=== PATIENT | male | born 1945 | race Caucasian/White ===

== ENCOUNTER 2022-07-25 15:08 | Inpatient (IN) ==
[2022-07-25] MEDS ORDERED: SODIUM CHLORIDE 0.9% 1,000 ML IV STA (16:03)
[2022-07-25 16:41] LABS: Basophils % 0.4 % (0.0-0.8); Eosinophils # 0.1 10*3/uL (0.0-0.87); Eosinophils % 1.5 % (0.00-10.9); Hematocrit 34.3 VOL% (42.0-52.0); Hemoglobin 10.7 GM/DL (14.0-18.0); Immature Granulocytes % 0.6 %; Immature Granulocytes Absolute 0.05 #; Lymphocytes # 0.9 10*3/uL (1.4-4.0); Lymphocytes % 11.5 % (21.2-54.2); Mean Corpuscular HGB Conc 31.2 GM/DL (32-36); Mean Corpuscular Volume 88.2 FL (87-102); Monocytes # 0.6 10*3/uL (0.11-0.8); Monocytes % 7.5 % (1.7-12.7); Neutrophils % 78.5 % (38.7-73.9); Platelet Count 562 T/CUMM (130-400); Red Blood Count 3.89 MC/CUMM (3.8-5.5); Red Cell Distribution Width 15.5 % (9.3-17.3); White Blood Count 8.2 T/CUMM (4-12)
[2022-07-25 16:57] LABS: Albumin 2.6 G/DL (3.4-5.0); Bilirubin,Total 0.6 MG/DL (0.20-1.00); Osmolality,Calculated 301.3 MOS/KG (273-304); Potassium 3.7 MMOL/L (3.5-5.1); Total Protein 6.5 G/DL (6.4-8.2)
[2022-07-25] MEDS ORDERED: ONDANSETRON 4 MG/2 ML VIAL IV PRN (18:44)
[2022-07-25] MEDS ORDERED: hydrALAZINE 20 MG/1 ML VIAL IV PRN (18:44)
[2022-07-25] MEDS ORDERED: NICOTINE 21 MG/24 HR PATCH TRANSDERM PRN (18:44)
[2022-07-26] MEDS ORDERED: INFLUENZA VIRUS VACCINE 0.5 ML SYRINGE IM ONE (00:40)
[2022-07-26] MEDS: DEXT 5% NACL 0.45% KCL 40 MEQ 40 MEQ/1,000 ML BAG IV SCH (01:44)
[2022-07-26 05:42] LABS: Basophils % 0.4 % (0.0-0.8); Eosinophils # 0.2 10*3/uL (0.0-0.87); Hematocrit 34.8 VOL% (42.0-52.0); Hemoglobin 10.9 GM/DL (14.0-18.0); Immature Granulocytes % 0.6 %; Immature Granulocytes Absolute 0.05 #; Lymphocytes # 0.9 10*3/uL (1.4-4.0); Lymphocytes % 11.7 % (21.2-54.2); Mean Corpuscular HGB Conc 31.3 GM/DL (32-36); Mean Corpuscular Volume 90.2 FL (87-102); Mean Platelet Volume 9.3 FL (9.6-12.0); Monocytes # 0.5 10*3/uL (0.11-0.8); Monocytes % 5.7 % (1.7-12.7); Neutrophils % 79.6 % (38.7-73.9); Platelet Count 477 T/CUMM (130-400); Red Blood Count 3.86 MC/CUMM (3.8-5.5); Red Cell Distribution Width 15.7 % (9.3-17.3); White Blood Count 7.9 T/CUMM (4-12)
[2022-07-26] MEDS ORDERED: BISACODYL 10 MG SUPP RECTAL PRN (13:07)
[2022-07-26] MEDS ORDERED: BISACODYL 10 MG SUPP RECTAL ONE (13:30)
[2022-07-26] MEDS: ZINC OXIDE PASTE 113 GM TUBE TOP SCH (21:19)
[2022-07-27] MEDS: DEXT 5% NACL 0.45% KCL 40 MEQ 40 MEQ/1,000 ML BAG IV SCH ×2 (01:45→12:57)
[2022-07-27 06:11] LABS: Basophils % 0.3 % (0.0-0.8); Eosinophils # 0.2 10*3/uL (0.0-0.87); Eosinophils % 2.8 % (0.00-10.9); Hematocrit 33.7 VOL% (42.0-52.0); Hemoglobin 10.2 GM/DL (14.0-18.0); Immature Granulocytes % 0.7 %; Immature Granulocytes Absolute 0.05 #; Lymphocytes % 14.1 % (21.2-54.2); Mean Corpuscular HGB Conc 30.3 GM/DL (32-36); Mean Corpuscular Volume 91.8 FL (87-102); Mean Platelet Volume 8.7 FL (9.6-12.0); Monocytes # 0.5 10*3/uL (0.11-0.8); Monocytes % 6.8 % (1.7-12.7); Neutrophils % 75.3 % (38.7-73.9); Platelet Count 466 T/CUMM (130-400); Red Blood Count 3.67 MC/CUMM (3.8-5.5); Red Cell Distribution Width 16.2 % (9.3-17.3)
[2022-07-27 06:29] LABS: Albumin 2.2 G/DL (3.4-5.0); Bilirubin,Total 0.4 MG/DL (0.20-1.00); Calcium 8.4 MG/DL (8.5-10.1); Osmolality,Calculated 303.7 MOS/KG (273-304); Potassium 3.9 MMOL/L (3.5-5.1); Total Protein 5.7 G/DL (6.4-8.2)
[2022-07-27] MEDS: ZINC OXIDE PASTE 113 GM TUBE TOP SCH ×2 (08:41→20:22)
[2022-07-27] MEDS ORDERED: propofoL 200 MG/20 ML VIAL IV ONE (10:50)
[2022-07-27] MEDS ORDERED: ROCURONIUM 50 MG/5 ML VIAL IV ONE (10:50)
[2022-07-27] MEDS ORDERED: ETOMIDATE 40 MG/20 ML VIAL IV ONE (10:50)
[2022-07-27] MEDS ORDERED: fentaNYL 100 MCG/2 ML VIAL ONE (10:50)
[2022-07-27] MEDS ORDERED: ePHEDrine 50 MG/ML VIAL ONE (11:12)
[2022-07-27] MEDS ORDERED: ONDANSETRON 4 MG/2 ML VIAL ONE (11:32)
[2022-07-27] MEDS ORDERED: SUGAMMADEX 200 MG/2 ML VIAL IV ONE (11:32)
[2022-07-27] MEDS ORDERED: LACTATED RINGERS 1,000 ML IV ONE (11:32)
[2022-07-27] MEDS ORDERED: SEVOFLURANE 1 UNIT/15 MINUTE INH ONE (11:32)
[2022-07-27] MEDS: MORPHINE 2 MG/1 ML SYRINGE IV PRN ×2 (13:02→20:39)
[2022-07-27] MEDS: DEXTROSE 5% 1,000 ML IV SCH (14:25)
[2022-07-28] MEDS ORDERED: METOPROLOL TARTRATE 5 MG/5 ML VIAL IV ONE (02:21)
[2022-07-28] MEDS: DEXTROSE 5% 1,000 ML IV SCH (03:23)
[2022-07-28] MEDS: MORPHINE 2 MG/1 ML SYRINGE IV PRN (04:25)
[2022-07-28 05:03] LABS: Calcium 8.1 MG/DL (8.5-10.1); Osmolality,Calculated 291.6 MOS/KG (273-304)
[2022-07-28] MEDS: ZINC OXIDE PASTE 113 GM TUBE TOP SCH (09:10)
[2022-07-28 11:53] VITALS: BP 95/65
== END 2022-07-28 13:22 | disposition hospice, home (50) | DRG 393 ==
LOC: EDUNIT# → N.3E 15:08 → N.ED 15:08 → SUATTDRO 18:44 → N.3E 23:30
PROVIDERS: ADMIT Hospitalist; ATTEND Internal Medicine
PROC: IRGITIN (2022-07-26 11:35)